=== PATIENT | male | born 1950 | race Caucasian/White ===

== ENCOUNTER → 2018-08-20 14:50 | Outpatient (CLI) | payer MEDICARE, MEDICAID, SELFPAY ==
--- NOTE | 2018-08-27 16:25 | PM.PFT.1 ---
Pulmonary Function Test Referral & Results Date Patient Seen: 08/20/18 Requesting provider: Lacey Stark Indication: Shortness of breath Results: The spirometry demonstrates an FVC of 2.29 L which is 64% of predicted. The FEV1 was measured at 1.68 L which is 64% of predicted. The FEV1/FVC ratio was 73 which is 99% of predicted. Following the administration of bronchodilator there was 21% improvement in FEV1 and a 106% improvement in FEF 25-75%. Lung volumes show an SVC of 3.15 L which is 84% of predicted. The diffusing capacity was measured at 18.58 which is 76% of predicted. No hemoglobin value was provided, so no correction for potential anemia could be made, if appropriate. The maximum voluntary ventilation was reduced Interpretation: This study demonstrates moderate obstructive lung disease with evidence of significant benefit following bronchodilator administration There may also be minimal restrictive lung disease present based on slight reduction in lung volumes There is also slight reduction in diffusing capacity suggesting element of disease at the capillary alveolar level (unless patient is anemic). Clinical correlation suggested
== END ==
PROVIDERS: PCP Nurse Practitioner Gerontology; Visit Provider Internal Medicine Cardiovascular Disease
DX: R06.02 Shortness of breath (principal)
CPT/HCPCS: 94010; 94060; 94726; 94729

== ENCOUNTER → 2020-10-08 11:37 | Outpatient (CLI) | payer MEDICARE, MEDICAID, SELFPAY ==
--- NOTE | 2020-10-08 | DI.MRI.S_ITS ---
PROCEDURE: MR SHOULDER LT WO CON INDICATIONS: Primary osteoarthritis, left shoulder TECHNIQUE: Noncontrast oblique coronal T2 fast spin echo with fat saturation, oblique sagittal T1 spin echo and T2 fast spin echo with fat saturation, axial T1 spin echo and T2 fast spin echo with fat saturation through the shoulder. COMPARISON: None. FINDINGS: Image quality: Excellent. Rotator cuff: Tendinosis and low to moderate grade articular surface partial thickness tear involving distal supraspinatus at its insertion on the humeral head is seen extending to musculotendinous junction. This low-grade bursal surface partial-thickness tear involving anterior to mid fibers of distal supraspinatus near musculotendinous junction is also seen. Distal infraspinatus tendon is intact. Tendinosis and moderate grade partial-thickness tear involving superior to mid fibers of distal subscapularis is seen. Sagittal images demonstrate mild to moderate supraspinatus muscle atrophy. Bones and bursae: No bone marrow contusions or fractures. Moderate to severe glenohumeral joint osteoarthritic changes are seen. Moderate acromioclavicular joint osteoarthritic changes also noted. There is marrow edema involving humeral head and adjacent glenoid without discrete fracture line likely represent and changes secondary to osteoarthritis. There is moderate amount of joint effusion with internal debris, synovitis cannot be excluded. No significant subacromial subdeltoid bursal fluid. Capsule and soft tissues: In the absence of intra-articular contrast, there is extensive signal abnormality throughout labrum suggestive of extensive labral tear. The glenohumeral ligaments appear intact. The long head of the biceps tendinosis and low to moderate grade partial-thickness tear is noted. The rotator interval appears normal, without fibrosis. The coracohumeral ligament is normal in thickness. IMPRESSION: 1. Tendinosis and low to moderate grade articular and bursal surface partial thickness tear involving distal supraspinatus as above. No full-thickness rotator cuff tendon rupture. Tendinosis and moderate grade partial-thickness tear involving superior to mid fibers of distal subscapularis. Mild to moderate supraspinatus muscle atrophy. 2. Moderate to severe glenohumeral joint osteoarthritis and moderate acromioclavicular joint osteoarthritis. Moderate amount of joint effusion with internal debris concerning for synovitis. No definite calcified intra-articular loose body. No fracture or dislocation. 3. Global signal abnormality throughout labrum suggestive of extensive labral tear. 4. Tendinosis and low to moderate grade partial-thickness tear involving proximal intra-articular portion of long head of biceps. Dictated by: Eusebio Ellison M.D. on 10/08/2020 at 11:27 Approved by: Eusebio Ellison M.D. on 10/08/2020 at 11:31
== END ==
PROVIDERS: PCP Nurse Practitioner Gerontology; Referring Provider Orthopaedic Surgery; Visit Provider Orthopaedic Surgery
DX: M19.012 Primary osteoarthritis, left shoulder (principal); M75.112 Incomplete rotator cuff tear or rupture of left shoulder, not specified as traumatic; S46.112A Strain of muscle, fascia and tendon of long head of biceps, left arm, initial encounter; M25.412 Effusion, left shoulder
CPT/HCPCS: 73221

== ENCOUNTER → 2021-05-03 09:30 | Outpatient (CLI) | payer MEDICARE, MEDICAID, SELFPAY ==
--- NOTE | 2021-05-03 09:33 | DI.CT.S_ITS ---
PROCEDURE: CT UE LT WO CON INDICATIONS: Primary osteoarthritis, left shoulder TECHNIQUE: Noncontrast 1-1.5 mm thick sections acquired from the acromioclavicular joint to the inferior scapula, with coronal and sagittal reformatting. COMPARISON: None. FINDINGS: Image quality: Excellent. Severe glenohumeral osteoarthritis with [id number] appearance. There is diffuse bulky osteophyte formation, subchondral sclerosis and cystic changes. Moderate AC joint degeneration also noted. Large amount of fluid present within the subscapular recess. There is atrophy of the supraspinatus muscle and heterogeneous appearance of the rotator cuff in keeping with at least partial tear or tendinopathy. Numerous sub 5 mm intra-articular loose bodies noted. Posterior subluxed appearance of the humeral head relative to the glenoid suggestive of chronic posterior labral tear. IMPRESSION: Advanced left shoulder joint degeneration as above. Dictated by: Pablo More M.D. on 05/03/2021 at 10:47 Approved by: Pablo More M.D. on 05/03/2021 at 10:52
[2021-05-03 10:19] LABS: Add Manual Diff / Slide Review NO; Basophils Absolute Auto 0 /uL (0-100); Basophils Percent Auto 1.1 % (0-2); Eosinophils Absolute Auto 100 /uL (0-450); Eosinophils Percent Auto 4.1 % (2-4); Hemoglobin 11.6 g/dL (13.5-17.5); Lymphocytes Absolute Auto 700 /uL (1100-4500); Lymphocytes Percent Auto 19.9 % (25-40); Mean Corpuscular HGB Conc 34.1 % (30-36); Mean Corpuscular Hemoglobin 31.7 PG (26-34); Mean Corpuscular Volume 93.1 fL (80-100); Monocytes Absolute Auto 500 /uL (0-900); Monocytes Percent Auto 14.1 % (3-14); Neutrophils Absolute Auto 2200 /uL (1500-7000); Neutrophils Percent Auto 60.8 % (50-75); Platelet Count 134 X10^3/uL (150-400); Red Blood Cell Count 3.65 X10^6/uL (4.5-5.9); Red Cell Distribution Width 13.3 % (11.6-14.8); White Blood Cell Count 3.6 X10^3/uL (4.5-11.0)
[2021-05-03 10:25] LABS: Hemoglobin A1C% w Est Avg Glu 5.2 % (4.0-6.0)
[2021-05-03 10:38] LABS: BUN Creatinine Ratio 17.3 (6-22); Blood Urea Nitrogen 14 mg/dL (9-20); Calcium 10.3 mg/dL (8.4-10.2); Carbon Dioxide 25 mmol/L (22-32); Chloride 105 mmol/L (98-107); Estimated Glomerular Filt Rate > 60.0 mL/min (>60); Glucose 108 mg/dL (80-110); HEMOLYSIS < 15 (0-50); Potassium 4.3 mmol/L (3.4-5.1); Sodium 137 mmol/L (137-145)
== END ==
PROVIDERS: PCP Internal Medicine; Referring Provider Orthopaedic Surgery; Visit Provider Orthopaedic Surgery
DX: Z01.818 Encounter for other preprocedural examination (principal); M19.012 Primary osteoarthritis, left shoulder; M25.512 Pain in left shoulder; R73.9 Hyperglycemia, unspecified
CPT/HCPCS: 36415; 73200; 80048; 83036; 85025; 93005

== ENCOUNTER 2023-06-10 07:25 | Day surgery (SDC) | payer MEDICARE, MEDICAID, SELFPAY ==
--- NOTE | 2023-06-10 | PATH_ITS ---
[facility] Accession Number: [id number] No. of containers..04 Tissue . 01 Material submitted: . PART A: duodenum - DUODENUM PART B: gastrointestinal site - GASTRIC PART C: cecum - CECUM PART D: rectum - RECTUM . 01 Diagnosis: A. Duodenum, Biopsy: Duodenal mucosa with no diagnostic abnormality. Negative for active inflammation, features of sprue, dysplasia, or malignancy. . B. Stomach, Biopsy: Antral mucosa with mild chronic gastritis. No evidence of Helicobacter organisms on H/E stain. Negative for intestinal metaplasia. Negative for dysplasia or malignancy. . C. Cecum, Biopsy: Tubular adenoma. . D. Rectum, Biopsy: Tubular adenoma. [facility] 06/22/2023 1600 Local . 01 Electronically signed: . Mayra Bahena MD, Pathologist NPI- [id number] . 01 Gross description: . Part A: DUODENUM: Received in formalin is 2 fragment(s) of samayoa, soft tissue measuring 0.3 x 0.3 x 0.2 cm to 0.3 x 0.2 x 0.1 cm submitted entirely in 1 cassette(s) Part B: GASTRIC: Received in formalin is 2 fragment(s) of samayoa, soft tissue measuring 0.3 x 0.2 x 0.1 cm to 0.2 x 0.2 x 0.1 cm submitted entirely in 1 cassette(s) Part C: CECUM: Received in formalin is 1 fragment(s) of samayoa, soft tissue measuring 0.3 x 0.3 x 0.2 cm submitted entirely in 1 cassette(s) Part D: RECTUM: Received in formalin is 1 fragment(s) of samayoa, soft tissue measuring 0.3 x 0.3 x 0.2 cm submitted entirely in 1 cassette(s) /[facility] 06/16/2023 1259 Local . 01 Pathologist provided ICD-10: D12.0, D12.8 . 01 CPT . 871150, 516912, 923584, [id number] Specimen Comment: A courtesy copy of this report has been sent to [phone] Performed at: 01 [facility] [address] [place] [address], [place], [place] [id number] MD Koffi Chi MD Phone: [phone]
[2023-06-10 07:51] VITALS: BMI 30.9
[2023-06-10 07:59] VITALS: BP 148/97; PULSE 89; RESP 18; TEMP 36.6; O2SAT 95
[2023-06-10] MEDS: ALBUTEROL 2.5 MG/3 ML NEB (ADULT) INH (08:02)
[2023-06-10] MEDS: LACTATED RINGERS 1,000 ML 100 ML IV (08:05)
--- NOTE | 2023-06-10 08:05 | SUR.PREOP ---
Enrico PATTERSON called. Notified that patient has not taken inhalers today and has coarse lung sounds. See new order.
--- NOTE | 2023-06-10 08:21 | PM.HP.1 ---
History of Present Illness History of Present Illness Date Patient Seen: 06/10/23 Chief complaint: SDC Narrative: History of iron deficiency anemia and history of colon polyps in the distant past. Also mild cervical dysphagia. Need for EGD and colonoscopy. [facility] Medical History (Updated 06/10/23 @ 07:39 by Tashia Oneill RN) Chronic cough COPD (chronic obstructive pulmonary disease) Dysphagia Fibromyalgia Hepatitis C Hypertension Osteoarthritis Social History household members: none Smoking Status: Current every day smoker alcohol intake: never Meds Home Medications and Allergies Home Medications Medication Instructions Recorded Confirmed Type albuterol 90 mcg/actuation aerosol 90 mcg inhalation Q4H PRN 06/10/23 06/10/23 History inhaler Shortness Of Breath Or Wheezing amlodipine 5 mg tablet 5 mg PO DAILY 06/10/23 06/10/23 History losartan-hydrochlorothiazide 1 tab PO DAILY 06/10/23 06/10/23 History meloxicam 15 mg tablet 15 mg PO DAILY 06/10/23 06/10/23 History pregabalin 1 tab PO DAILY 06/10/23 06/10/23 History umeclidinium 62.5 mcg/actuation 1 inh inhalation DAILY 06/10/23 06/10/23 History blister powder for inhalation (Incruse Ellipta) Allergies Allergy/AdvReac Type Severity Reaction Status Date / Time No Known Drug Allergies Allergy Verified 06/10/23 07:40 Exam Vital Signs (past 8 hours): - 06/10/23 07:59 Temperature 97.9 F Pulse Rate 89 Respiratory Rate 18 Blood Pressure 148/97 H Pulse Oximetry 95 Oxygen Delivery Method Room Air Oxygen Delivery Method Room Air Narrative Exam Narrative: Oropharynx free of lesions Chest clear to auscultation percussion Cardiac exam reveals no S3 or murmur Assessment & Plan Assessment & Plan narrative: Iron deficiency anemia with mild dysphagia and distant history of colon polyps. Need for follow-up EGD and colonoscopy. Risks, benefits, alternatives have been explained.
--- NOTE | 2023-06-10 08:22 | PM.OP.EC ---
Operative Date/Time/Diagnoses Date of procedure: 06/10/23 Pre-op diagnosis: See indication and findings Procedure & Clinicians Study performed: Colonoscopy and EGD Indications: Iron deficiency anemia with history of colon polyps and dysphagia Surgeon: Laxmi Goodman Procedure Notes Procedure in detail: After informed consent was obtained the patient was placed in left lateral decubitus position. The video upper scope was placed into the oropharynx and with the patient's help swallowed into the esophagus. The esophagus stomach and duodenum were carefully examined. On withdrawal, retroflexed view the GE junction was performed. The scope was removed. The patient tolerated the procedure well. Patient was then turned to the colonoscope substituted. This introduced the rectum slowly advanced cecum. Preparation was good. On slow withdrawal mucosa was carefully examined. The scope was removed. The patient tolerated procedure well. Blood loss none Complications none Sedation mac Findings EGD 1. 4 mm polyp at the apex of the vocal cords. Photographs taken 2. Normal esophagus with normal squamocolumnar junction 3. Striped gastric erythema particularly in the antrum biopsies taken to rule out Helicobacter 4. Normal duodenal bulb and sweep biopsies taken to rule out celiac Colonoscopy 1. 1.2 cm linear polyp at the base of the cecum. This was injected with 2 cc of saline to left and removed with hot snare. 2. 3 mm polyp in the proximal rectum. Cold biopsy removed completely 3. Otherwise negative colonoscopy to cecum I will arrange for referral to ENT to evaluate this nodule on his vocal cords. Depending on the findings we may want us consider pill camera.
[2023-06-10 09:04] VITALS: BP 115/70; PULSE 82; RESP 10; TEMP 35.9; O2SAT 93
[2023-06-10 09:09] VITALS: BP 119/73; PULSE 87; RESP 20; O2SAT 94
[2023-06-10 09:14] VITALS: BP 122/65; PULSE 84; RESP 20; O2SAT 94
[2023-06-10 09:19] VITALS: BP 128/76; PULSE 78; RESP 20; O2SAT 94
== END 2023-06-10 09:48 | disposition home or self-care (01) ==
PROVIDERS: PCP Internal Medicine; Referring Provider Internal Medicine Gastroenterology; Visit Provider Internal Medicine Gastroenterology
PROC: 0DJ08ZZ Inspection of Upper Intestinal Tract, Via Natural or Artificial Opening Endoscopic (ICD-10-PCS; CPT 43235; principal; 2023-06-10 08:30)
PROC: 0DJD8ZZ Inspection of Lower Intestinal Tract, Via Natural or Artificial Opening Endoscopic (ICD-10-PCS; CPT 45378; 2023-06-10 08:30)
DX: D50.9 Iron deficiency anemia, unspecified (principal); Z86.010 Personal history of colon polyps; R13.10 Dysphagia, unspecified; K29.50 Unspecified chronic gastritis without bleeding; D12.0 Benign neoplasm of cecum; D12.8 Benign neoplasm of rectum
CPT/HCPCS: 43239; 45381; 45385; 45380; J2704; J7613

== ENCOUNTER → 2023-12-01 13:18 | Outpatient (CLI) | payer MEDICARE, MEDICAID, SELFPAY | LOC: RESP 13:18 | PROVIDERS: PCP Internal Medicine; Referring Provider Thoracic Surgery (Cardiothoracic Vascular Surgery); Visit Provider Thoracic Surgery (Cardiothoracic Vascular Surgery) | DX: R91.1 Solitary pulmonary nodule (principal); Z01.810 Encounter for preprocedural cardiovascular examination; F17.210 Nicotine dependence, cigarettes, uncomplicated; J98.8 Other specified respiratory disorders | CPT/HCPCS: 94060; 94726; 94729 ==

== ENCOUNTER 2024-08-03 08:28 | Day surgery (SDC) | payer MEDICARE, MEDICAID, SELFPAY ==
[2024-08-03 09:26] VITALS: BP 152/92; PULSE 80; RESP 20; TEMP 36.4; O2SAT 97
[2024-08-03] MEDS: LACTATED RINGERS 1,000 ML 42 ML IV (09:45)
--- NOTE | 2024-08-03 10:19 | P.HP_ITS ---
History of Present Illness History of Present Illness [place] [facility] [place]: History of large cecal polyp need for follow-up colonoscopy in 1 year. [facility] Medical History (Updated 06/10/23 @ 07:39 by Tashia Oneill RN) Fibromyalgia COPD (chronic obstructive pulmonary disease) Osteoarthritis Hepatitis C Dysphagia Chronic cough Hypertension Social History household members: none Smoking Status: Current every day smoker alcohol intake: never Meds Home Medications and Allergies Home Medications Medication Instructions Recorded Confirmed Type albuterol 90 mcg/actuation aerosol 90 mcg inhalation Q4H PRN 06/10/23 06/10/23 History inhaler Shortness Of Breath Or Wheezing losartan-hydrochlorothiazide 1 tab PO DAILY 06/10/23 06/10/23 History pregabalin 1 tab PO DAILY 06/10/23 06/10/23 History umeclidinium 62.5 mcg/actuation 1 inh inhalation DAILY 06/10/23 06/10/23 History blister powder for inhalation (Incruse Ellipta) amlodipine 5 mg tablet 5 mg PO DAILY 08/03/24 08/03/24 History celecoxib 200 mg capsule 200 mg PO DAILY 08/03/24 08/03/24 History Allergies Allergy/AdvReac Type Severity Reaction Status Date / Time No Known Drug Allergies Allergy Verified 08/03/24 09:46 Exam Vital Signs (past 8 hours): - 08/03/24 09:26 Temperature 97.5 F L Pulse Rate 80 Respiratory Rate 20 Blood Pressure 152/92 H Pulse Oximetry 97 Oxygen Delivery Method Room Air Oxygen Delivery Method Room Air Narrative Exam Narrative: Oropharynx free of lesions Chest clear to percussion though on auscultation particularly in the right anterior chest field there are expiratory wheezes. Cardiac exam reveals no S3 or murmur Assessment & Plan Assessment & Plan narrative: History of colon polyps need for follow-up for a large polyp in the cecum. Risks, benefits, alternatives have been explained. Time-Based Coding :: [TOTAL MINUTES] spent with patient and on the chart (including review of chart, obtaining history, exam, reviewing outside data, placing orders, documenting exam and treatment plan, and counseling patient) on [DATE].
--- NOTE | 2024-08-03 10:20 | PM.OP.COLON ---
Operative Date/Time/Diagnoses Date of procedure: 08/03/24 Pre-op diagnosis: See indication and findings Procedure & Clinicians Study performed: Colonoscopy Indications: History of large adenomatous polyp in the cecum removed 1 year ago need for follow-up Surgeon: Laxmi Goodman Procedure Notes Procedure in detail: After informed consent was obtained the patient was placed in left lateral decubitus position. The video colonoscope was placed in the rectum slowly advanced cecum. Preparation was good. On slow withdrawal mucosa was carefully examined. The scope was removed. Patient tolerated procedure well. Blood loss none Complications none Sedation mac Findings 1. Normal colonoscopy to cecum Given reaches his significant underlying lung disease I would suggest this be his last colonoscopy.
[2024-08-03 10:44] VITALS: BP 123/77; PULSE 80; RESP 12; TEMP 37.1; O2SAT 92
[2024-08-03 10:48] VITALS: BP 130/72; PULSE 75; RESP 13; TEMP 37.1; O2SAT 92
[2024-08-03 10:53] VITALS: BP 128/76; PULSE 76; RESP 18; TEMP 37.1; O2SAT 95
[2024-08-03 10:58] VITALS: BP 132/77; PULSE 73; RESP 15; TEMP 37; O2SAT 95
== END 2024-08-03 11:02 | disposition home or self-care (01) ==
PROVIDERS: PCP Internal Medicine; Referring Provider Internal Medicine Gastroenterology; Visit Provider Internal Medicine Gastroenterology
PROC: 0DJD8ZZ Inspection of Lower Intestinal Tract, Via Natural or Artificial Opening Endoscopic (ICD-10-PCS; CPT 45378; principal; 2024-08-03 10:00)
DX: Z12.11 Encounter for screening for malignant neoplasm of colon (principal); Z86.0100 Personal history of colon polyps, unspecified
CPT/HCPCS: G0105; J2704

== ENCOUNTER → 2024-08-11 12:27 | Outpatient (CLI) | payer MEDICARE, MEDICAID, SELFPAY ==
--- NOTE | 2024-08-11 12:28 | DI.ECHO.S_ITS ---
[place] [facility]---------+ [facility] : : [id number] : : [place] : : [id number] : : Phone: [phone] Echocardiogram Report + + :Name: JOSE GLEZ Study Date: 08/11/2024 Height: 66 in : :[facility] ReadingLocation: Weight: 192 lb : : Gender: Male BSA: 2.0 m2 : :: 1950 Age: 73 yrs BP: 125/77 mmHg: :Reason For Study: SHORTNESS OF BREATH : :Ordering Physician: CHLOE, : :PEYTON Performed By: Sánchez Carrasquillo : :Referring: PEYTON CORONA : + + Interpretation Summary The left ventricle is normal in size. Proximal septal thickening is noted. The ejection fraction is estimated to be 65-70%. There has been no significant change in LVEF since the previous exam. The right ventricle is normal in size and function. Heavy calcification of the posterior mitral annulus. No significant mitral valve stenosis. There is mild tricuspid regurgitation. The right ventricular systolic pressure is estimated to be at least 32 mmHg based on an estimated right atrial pressure of 3 mm Hg. Moderate atherosclerotic plaque(s) in the aortic arch. Procedure: A two-dimensional transthoracic echocardiogram with color flow and Doppler was performed. The study quality was technically good. Comparison is made with the echocardiogram of 05/18/2018. The patient was in normal sinus rhythm during the exam. Left Ventricle: The left ventricle is normal in size. Proximal septal thickening is noted. There is no thrombus. The ejection fraction is estimated to be 65-70%. There has been no significant change since the previous exam. There are no focal wall motion abnormalities. MV E/A: 0.62 Med Peak E' Mark: 4.2 cm/sec E/E' med: 15.6. Right Ventricle: The right ventricle is normal in size and function. Atria: The left atrium is moderately dilated. The left atrium has mildly increased in size since the prior echo exam. Right atrial size is normal. There is no Doppler evidence for an atrial septal defect. Mitral Valve: Heavy calcification of the posterior mitral annulus. No significant mitral valve stenosis. There is trace mitral regurgitation. Aortic Valve: The aortic valve is trileaflet. The aortic valve is mildly calcified. There is discrete nodular thickening of the left coronary cusp. There is no hemodynamically significant valvular aortic stenosis. No aortic regurgitation is present. Tricuspid Valve: The tricuspid valve is normal. There is mild tricuspid regurgitation. The right ventricular systolic pressure is estimated to be at least 32 mmHg based on an estimated right atrial pressure of 3 mm Hg. Pulmonic Valve: The pulmonic valve is normal in structure and function. There is trace pulmonic regurgitation. Great Vessels: The aortic root is normal size. The dimensions of the ascending aorta are normal. Moderate atherosclerotic plaque(s) in the aortic arch. The pulmonary artery is normal size. The IVC is of normal diameter and collapses greater than 50% with a sniff. This suggests a low right atrial pressure of 3 mm Hg. Pericardium/ Pleura There is no pericardial effusion. There is no pleural effusion. MMode/2D Measurements & Calculations LVIDd: 4.6 cm LVOT diam: 2.1 cm LVIDs: 2.5 cm Ao root diam: 3.4 cm FS: 46.3 % asc Aorta Diam: 3.4 cm EPSS: 0.39 cm Ao Arch Diam (Prox Trans): 2.4 cm IVSd: 1.2 cm LVPWd: 1.2 cm LV chakraborty. diameter/BSA (cm/m^2): 2.4 LV sys. diameter/BSA (cm/m^2): 1.3 LA A2 area: 23.9 cm2 RA long axis: 6.0 cm LA A4 area: 20.7 cm2 RA area: 16.9 cm2 LA length (vol): 5.5 cm RA vol: 40.0 ml LA vol: 75.9 ml RA : 20.4 ml/m2 LA vol index: 38.6 ml/m2 IVC diam: 2.0 cm RVD1 (basal): 3.4 cm RVD2 (mid): 3.1 cm TAPSE: 2.4 cm Doppler Measurements & Calculations Ao V2 max: 150.3 cm/sec LVOT Max Mark: 87.4 cm/sec Ao V2 mean: 101.6 cm/sec LV V1 max P.1 mmHg Ao max P.0 mmHg LV V1 VTI: 20.0 cm Ao mean P.7 mmHg NARGIS(I,D): 2.2 cm2 Ao V2 VTI: 33.3 cm NARGIS(V,D): 2.1 cm2 sev ratio: 0.60 NARGIS indexed to BSA (cm^2/m^2): 1.1 MV E max mark: 65.7 cm/sec TR max mark: 268.6 cm/sec MV A max mark: 106.8 cm/sec TR max P.8 mmHg MV E/A: 0.62 PA V2 max: 65.5 cm/sec Med Peak E' Mark: 4.2 cm/sec PA V2 mean: 40.9 cm/sec E/E' med: 15.6 PA mean P.82 mmHg Lat Peak E' Mark: 4.8 cm/sec PA pr(Accel): 51.6 mmHg E/E' lat: 13.7 E/e' average: 14.6 MV dec time: 0.29 sec SV(LVOT): 71.8 ml Reading Physician:03:49 PM
--- NOTE | 2024-08-12 19:35 | DI.NM.S_ITS ---
DATE OF SERVICE: 08/11/2024 PHARMACOLOGICAL PERFUSION STUDY INDICATION: Preop evaluation, known history of tobacco abuse, aortic arch atherosclerosis, hypertension, hyperlipidemia, and shortness of breath. RADIOPHARMACEUTICAL: 25.8 mCi technetium-99m Myoview IV was injected at stress and 25.9 millicurie technetium-99m Myoview IV was injected at rest. CARDIAC STRESS: The patient had IV Lexiscan perfusion study under the supervision of attending staff using standard intravenous Lexiscan as per protocol. The patient remained hemodynamically stable. Resting blood pressure 128/86 and peak blood pressure 180/80. Baseline rhythm was sinus. During stress, no convincing ischemic changes seen. Rare PVCs. Normal recovery. No chest pain. RAW DATA: There is increased subdiaphragmatic activity. GATED STUDY: Resting LV ejection fraction 69% and stress LV ejection fraction 72% without any obvious wall motion abnormalities. Resting end- diastolic volume 97 mL. TID ratio 1.13, which is within normal limits. Lung/heart ratio 0.24, which is within normal limits. MYOCARDIAL PERFUSION SCAN: Stress supine, resting supine, and stress prone images were compared to each other. Resting supine images revealed minimally decreased perfusion of the distal inferior wall. Stress supine images revealed moderate size, moderate to severely decreased perfusion of distal anterior wall, entire apex. During stress prone images , Mild improvement in distal anterior wall and anterior apex but is still moderate size defect there. CONCLUSION: I will call the study an abnormal myocardial perfusion study consistent with moderate size reversible ischemia in the distal anterior wall, apex. Likely patient has occlusive mid LAD disease. Reviewed the findings with our cargo broker Dr. Longo. Jase Arias - JUANA/carola/CAROLINA doc#: [id number]/job#: [id number] dd: 08/12/2024 17:19:00 dt: 08/12/2024 19:25:00 DICTATING MD/COPIES TO: Lacey Stark MD COPIES MNE: GORDO;
== END ==
PROVIDERS: PCP Internal Medicine; Referring Provider Internal Medicine Cardiovascular Disease; Visit Provider Internal Medicine Cardiovascular Disease
DX: R94.39 Abnormal result of other cardiovascular function study (principal); I70.0 Atherosclerosis of aorta; R06.02 Shortness of breath; I10 Essential (primary) hypertension; E78.5 Hyperlipidemia, unspecified; F17.210 Nicotine dependence, cigarettes, uncomplicated
CPT/HCPCS: 78452; 93017; 93306; A9502; J2785

== ENCOUNTER 2024-09-14 13:37 | Day surgery (SDC) | payer MEDICARE, MEDICAID, SELFPAY ==
[2024-09-14 14:39] VITALS: BP 166/91; PULSE 69; RESP 12; TEMP 36.7; O2SAT 97
--- NOTE | 2024-09-14 14:46 | PM.HP.1 ---
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 Need for push enteroscopy with APC to treat. [facility] Medical History (Updated 06/10/23 @ 07:39 by Tashia Oneill RN) Fibromyalgia COPD (chronic obstructive pulmonary disease) Osteoarthritis Hepatitis C Dysphagia Chronic cough Hypertension Social History household members: none Smoking Status: Current every day smoker alcohol intake: never Meds Home Medications and Allergies Home Medications Medication Instructions Recorded Confirmed Type albuterol 90 mcg/actuation aerosol 90 mcg inhalation Q4H PRN 06/10/23 06/10/23 History inhaler Shortness Of Breath Or Wheezing losartan-hydrochlorothiazide 1 tab PO DAILY 06/10/23 06/10/23 History pregabalin 1 tab PO DAILY 06/10/23 06/10/23 History umeclidinium 62.5 mcg/actuation 1 inh inhalation DAILY 06/10/23 06/10/23 History blister powder for inhalation (Incruse Ellipta) amlodipine 5 mg tablet 5 mg PO DAILY 08/03/24 08/03/24 History celecoxib 200 mg capsule 200 mg PO DAILY 08/03/24 08/03/24 History Allergies Allergy/AdvReac Type Severity Reaction Status Date / Time No Known Drug Allergies Allergy Verified 09/14/24 14:38 Exam Vital Signs (past 8 hours): - 09/14/24 14:39 Temperature 98.1 F Pulse Rate 69 Respiratory Rate 12 Blood Pressure 166/91 H Pulse Oximetry 97 Oxygen Delivery Method Room Air Oxygen Delivery Method Room Air Narrative Exam Narrative: Oropharynx free of lesions Chest clear to auscultation percussion Cardiac exam reveals no S3 or murmur Assessment & Plan Assessment & Plan narrative: 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 These need to be treated prior to cardiac catheterization for presumed LA D disease, with the subsequent need for anticoagulation.. Risks, benefits, alternatives have been explained. Time-Based Coding :: [TOTAL MINUTES] spent with patient and on the chart (including review of chart, obtaining history, exam, reviewing outside data, placing orders, documenting exam and treatment plan, and counseling patient) on [DATE].
--- NOTE | 2024-09-14 14:50 | PM.OP.EGD ---
Operative Date/Time/Diagnoses Date of procedure: 09/14/24 Pre-op diagnosis: See indication and findings Procedure & Clinicians Study performed: EGD with APC Indications: See above Surgeon: Laxmi Goodman Procedure Notes Procedure in detail: After informed consent was obtained the patient was placed in left lateral decubitus position. The video upper scope was placed into the oropharynx and with the patient's help swallowed into the esophagus. The esophagus stomach and duodenum were carefully examined. On withdrawal, retroflexed view the GE junction was performed. The scope was removed. The patient tolerated procedure well. Blood loss none Complications none Sedation mac Findings 1. Scope was able to be passed to a proximally a level of 140-150 cm. On withdrawal the pylorus was at 70 cm. 2. AVMs were detected but primarily more proximal than distal. The largest was only 2 mm. Fourteen punctate red abnormalities were cauterized with pulsed APC. 3. Esophagus and stomach as previously described Will be in touch with Dr. Graham office regarding upcoming catheterization. He may well need another round of APC in the future if he continues to slowly lose blood. Hopefully this will prevent him from having any significant hemorrhagic episodes after his catheterization.
[2024-09-14 15:30] VITALS: BP 118/83; PULSE 67; RESP 16; TEMP 36.4; O2SAT 92
[2024-09-14 15:36] VITALS: BP 125/85; PULSE 73; RESP 15; TEMP 36.4; O2SAT 94
[2024-09-14 15:41] VITALS: BP 120/81; PULSE 69; RESP 13; TEMP 36.4; O2SAT 94
[2024-09-14 15:46] VITALS: BP 138/75; PULSE 67; RESP 15; TEMP 36.3; O2SAT 94
== END 2024-09-14 13:58 | disposition home or self-care (01) ==
PROVIDERS: PCP Internal Medicine; Referring Provider Internal Medicine Gastroenterology; Visit Provider Internal Medicine Gastroenterology
PROC: 0DJ08ZZ Inspection of Upper Intestinal Tract, Via Natural or Artificial Opening Endoscopic (ICD-10-PCS; CPT 43255; principal; 2024-09-14 15:00)
DX: K31.819 Angiodysplasia of stomach and duodenum without bleeding (principal)
CPT/HCPCS: 43255; J2704

== ENCOUNTER → 2025-05-16 12:37 | Outpatient (CLI) | payer MEDICARE, MEDICAID, SELFPAY ==
--- NOTE | 2025-05-16 12:39 | DI.US.S_ITS ---
PROCEDURE: US PERIPH VENOUS LOW EXTREM BI INDICATIONS: dvt r/o TECHNIQUE: Real-time imaging, as well as color and pulse Doppler interrogation, were performed of the deep veins of both legs from the inguinal ligament to the popliteal fossa, with documentation of the visualized calf veins. COMPARISON: None. FINDINGS: Right: The common femoral, femoral, popliteal, and the visualized calf veins are normally compressible, and free of intraluminal thrombus. Color and pulse Doppler demonstrate normal phasic intravascular flow. There is normal augmentation response to distal compression maneuver. Left: The common femoral, femoral, popliteal, and the visualized calf veins are normally compressible, and free of intraluminal thrombus. Color and pulse Doppler demonstrate normal phasic intravascular flow. There is normal augmentation response to distal compression maneuver. IMPRESSION: No findings of deep venous thrombosis in either lower extremity. Dictated by: Matti Manriquze M.D. on 05/16/2025 at 14:19 Approved by: Matti Manriquez M.D. on 05/16/2025 at 14:22
[2025-05-16 15:09] LABS: Hematocrit 32.3 % (41-53); Hemoglobin 10.7 g/dL (13.5-17.5); Mean Corpuscular HGB Conc 33.1 % (30-36); Mean Corpuscular Hemoglobin 28.8 PG (26-34); Mean Corpuscular Volume 86.9 fL (80-100); Platelet Count 125 X10^3/uL (150-400)
[2025-05-16 15:23] LABS: Alanine Aminotransferase 16 IU/L (<50); Albumin 3.9 g/dL (3.5-5.0); Albumin Globulin Ratio 1.1 (1.0-2.8); Alkaline Phosphatase 160 U/L (38-126); Blood Urea Nitrogen 38 mg/dL (9-20); Calcium 9.2 mg/dL (8.4-10.2); Carbon Dioxide 31 mmol/L (22-32); Chloride 99 mmol/L (98-107); Cholesterol 75 mg/dL (140-199); Estimated Glomerular Filt Rate 41 mL/min (>60); Globulin 3.4 g/dL (1.7-4.1); Glucose 77 mg/dL (70-99); HDL Cholesterol 29 mg/dL (40-60); HEMOLYSIS < 15 (0-50); Potassium 4.7 mmol/L (3.4-5.1); Sodium 137 mmol/L (137-145); Total Protein 7.3 g/dL (6.3-8.2); Triglycerides 99 mg/dL (35-150)
== END ==
PROVIDERS: Referring Provider Internal Medicine Cardiovascular Disease; Visit Provider Internal Medicine Cardiovascular Disease
DX: R60.0 Localized edema (principal); E78.5 Hyperlipidemia, unspecified; I25.10 Atherosclerotic heart disease of native coronary artery without angina pectoris
CPT/HCPCS: 36415; 80053; 80061; 85027; 93970

== ENCOUNTER → 2025-05-22 09:21 | Outpatient (CLI) | payer MEDICARE, MEDICAID, SELFPAY ==
--- NOTE | 2025-05-22 09:23 | DI.ECHO.S_ITS ---
[facility] +---------+ Hospital : : [id number] : : [place] : : [id number] : : Phone: [phone] Echocardiogram Report + + :Name: JOSE GLEZ Study Date: 05/22/2025 Height: 64 in : :Hospital ReadingLocation: Weight: 185 lb : : Gender: Male BSA: 1.9 m2 : :: 1950 Age: 74 yrs BP: 125/76 mmHg: :Reason For Study: Edema : :Ordering Physician: CHLOE, : :PEYTON Performed By: Bernardo Burrows : :Referring: PEYTON CORONA : + + Interpretation Summary The left ventricle is normal in size. The ejection fraction is estimated to be 55-60%. Previous LVEF 60 to 65%. There is basal inferoseptal wall akinesis. This appears to be new. MV E/A: 0.50 Med Peak E' Mark: 3.6 cm/sec E/E' med: 15.5 There has been no significant change diastolic dysfunction since the previous study. The right ventricle is normal in size and function. Predominantly heavy posterior mitral annulus calcification without any significant mitral stenosis. The IVC is of normal diameter and collapses greater than 50% with a sniff. This suggests a low right atrial pressure of 3 mm Hg. Procedure: A two-dimensional transthoracic echocardiogram with color flow and Doppler was performed. The study quality was technically adequate. Comparison is made with the echocardiogram of 08/11/2024. The heart rate ranged between 63-71 bpm during the study. The patient was in normal sinus rhythm during the exam. Left Ventricle: The left ventricle is normal in size. Left ventricular wall thickness is mildly increased. Proximal septal thickening is noted. The ejection fraction is estimated to be 55-60%. There is basal inferoseptal wall akinesis. MV E/A: 0.50 Med Peak E' Mark: 3.6 cm/sec E/E' med: 15.5. There has been no significant change since the previous study. Right Ventricle: The right ventricle is normal in size and function. Atria: The left atrium is moderately dilated. There has been no significant change since the previous study. Right atrial size is normal. There is no Doppler evidence for an interatrial shunt. Mitral Valve: Predominantly heavy posterior mitral annulus calcification without any significant mitral stenosis. There is no mitral valve stenosis. There is trace mitral regurgitation. Aortic Valve: The aortic valve is trileaflet. There is discrete nodular thickening of the non- coronary cusp. The aortic valve is mildly calcified. There is no aortic valve stenosis. No aortic regurgitation is present. Tricuspid Valve: The tricuspid valve is not well visualized, but is grossly normal. There is trace tricuspid regurgitation. Pulmonary artery pressures cannot be estimated because of the lack of a measurable TR jet velocity but the IVC suggests a CVP of around 3 mmHg. Pulmonic Valve: The pulmonic valve is not well seen, but is grossly normal. There is trace pulmonic regurgitation. Great Vessels: The aortic root is normal size. The ascending aorta is normal in size. The aortic arch could not be visualized. The IVC is of normal diameter and collapses greater than 50% with a sniff. This suggests a low right atrial pressure of 3 mm Hg. Pericardium/ Pleura There is no pericardial effusion. MMode/2D Measurements & Calculations LVIDd: 5.4 cm LVOT diam: 2.3 cm LVIDs: 4.3 cm Ao root diam: 3.3 cm FS: 21.1 % asc Aorta Diam: 3.4 cm EPSS: 1.2 cm IVSd: 1.1 cm LVPWd: 1.1 cm LV chakraborty. diameter/BSA (cm/m^2): 2.9 LV sys. diameter/BSA (cm/m^2): 2.3 LA length (vol): 5.8 cm IVC diam: 1.6 cm RVD1 (basal): 2.5 cm LA A4C-A/L_phl: 24.3 cm2 RVD2 (mid): 2.3 cm TAPSE: 1.9 cm Doppler Measurements & Calculations Ao V2 max: 129.6 cm/sec LVOT Max Mrak: 105.9 cm/sec Ao V2 mean: 85.9 cm/sec LV V1 max P.5 mmHg Ao max P.7 mmHg LV V1 VTI: 23.1 cm Ao mean P.4 mmHg NARGIS(I,D): 3.7 cm2 Ao V2 VTI: 25.7 cm NARGIS(V,D): 3.4 cm2 sev ratio: 0.90 NARGIS indexed to BSA (cm^2/m^2): 2.0 MV E max mark: 56.5 cm/sec PA V2 max: 87.3 cm/sec MV A max mark: 112.6 cm/sec PA V2 mean: 56.6 cm/sec MV E/A: 0.50 PA mean P.5 mmHg Med Peak E' Mark: 3.6 cm/sec PA pr(Accel): 53.3 mmHg E/E' med: 15.5 Lat Peak E' Mark: 7.1 cm/sec E/E' lat: 8.0 E/e' average: 11.8 MV dec time: 0.24 sec SV(LVOT): 95.3 ml Reading Physician:05:37 PM
== END ==
LOC: ECHO 09:22
PROVIDERS: Referring Provider Internal Medicine Cardiovascular Disease; Visit Provider Internal Medicine Cardiovascular Disease
DX: I34.81 Nonrheumatic mitral (valve) annulus calcification (principal); I31.39 Other pericardial effusion (noninflammatory); R60.0 Localized edema
CPT/HCPCS: 93306